=== PATIENT | male | born 1965 | race Caucasian/White ===

== ENCOUNTER 2016-12-06 09:57 | Emergency (ER) | payer BC ==
[2016-12-06] MEDS ORDERED: CLINDAMYCIN 600 MG/4 ML VIAL ONE (11:21)
[2016-12-06] MEDS ORDERED: LIDOCAINE/EPI 1% MDV 50 ML ONE (12:25)
== END 2016-12-06 13:02 | disposition home or self-care (01) ==
LOC: ER 09:57
DX: K61.1 Rectal abscess (principal); Z79.899 Other long term (current) drug therapy
CPT/HCPCS: 36415; 80053; 85025; 87071; 87077; 87186; 96372